=== PATIENT | male | born 1955 | race Two or more races ===

== ENCOUNTER → 2024-09-04 | Outpatient (CLI) | payer OTHER ==
[2024-09-04 07:58] LABS: Urine Bacteria None Seen /hpf (None Seen)
[2024-09-04 08:03] LABS: Basophils # (auto) 0.1 10 ^3/uL (0-0.2); Basophils % (auto) 1.5 % (0.0-2.0); Eosinophils # (auto) 0.3 10 ^3/uL (0-0.8); Eosinophils % (auto) 5.4 % (0.0-7.0); Hematocrit 31.9 % (41.0-53.0); Hemoglobin 9.7 g/dL (13.5-17.5); Lymphocytes # (auto) 1.2 10 ^3/uL (0.4-5.4); Lymphocytes % (auto) 23.1 % (10.0-50.0); Mean Corpuscular Hemoglobin 21.1 pg (28.0-32.0); Mean Corpuscular Hgb Conc. 30.5 g/dL (32.0-36.0); Mean Corpuscular Volume 69.3 fL (80.0-100.0); Monocytes # (auto) 0.4 10 ^3/uL (0-1.3); Monocytes % (auto) 8.6 % (0.0-12.0); Neutrophils # (auto) 3.2 10 ^3/uL (1.6-8.6); Neutrophils % (auto) 61.4 % (37.0-80.0); Platelet Count (auto) 311 10^3/uL (140-450); Red Blood Cells 4.61 10^6/uL (4.5-5.90); Red Cell Distribution Width 16.8 % (11.8-14.3); White Blood Cell 5.2 10^3/uL (4.4-10.8)
[2024-09-04 08:11] LABS: Urine Blood Negative /uL (Negative); Urine Clarity Clear (Clear); Urine Color Light-Yellow (Yellow); Urine Protein, UAD Negative (Negative); Urine Specific Gravity 1.011 (1.001-1.035); Urine Squamous Epithelial Cell None Seen /hpf (<5); Urine Urobilinogen Normal (Negative); Urine WBC < 1 /HPF (0-3); Urine pH 6.5 (5.0-9.0)
[2024-09-04 08:38] LABS: Alanine Aminotransferase 17 U/L (7-40); Anion Gap 8 (5-15); BUN/Creatinine Ratio 11.5 (10.0-20.0); Blood Urea Nitrogen 10 mg/dL (9-23); Carbon Dioxide 29 mmol/L (20-31); Chloride 105 mmol/L (98-107); Cholesterol 113 mg/dL (< 200); LDL Cholesterol 56 mg/dL (< 100); Potassium 4.4 mmol/L (3.5-5.1); Sodium 142 mmol/L (136-145); Total Protein 7.3 g/dL (5.7-8.2); Triglycerides 142 mg/dL (< 150)
[2024-09-04 08:39] LABS: Bilirubin, Total 1.1 mg/dL (0.2-1.0)
[2024-09-04 08:42] LABS: Albumin 4.9 g/dL (3.2-4.8); Alkaline Phosphatase 41 U/L (46-116); Aspartate Aminotransferase 10 U/L (13-40); Glucose 118 mg/dL (74-106); HDL Cholesterol 40 mg/dL (40-59)
[2024-09-04 11:12] LABS: Folate (Folic Acid) 31.91 ng/mL (>5.38)
== END | disposition home or self-care (01) ==
LOC: LAB 07:42
PROVIDERS: ATTEND Internal Medicine
DX: N40.0 Benign prostatic hyperplasia without lower urinary tract symptoms (principal); E61.2 Magnesium deficiency; E55.9 Vitamin D deficiency, unspecified; D51.9 Vitamin B12 deficiency anemia, unspecified; E78.49 Other hyperlipidemia; E79.0 Hyperuricemia without signs of inflammatory arthritis and tophaceous disease; R94.6 Abnormal results of thyroid function studies; R82.79 Other abnormal findings on microbiological examination of urine; R82.998 Other abnormal findings in urine; R73.09 Other abnormal glucose; R68.89 Other general symptoms and signs; R82.90 Unspecified abnormal findings in urine
CPT/HCPCS: 36415; 80053; 80061; 81001; 82306; 82607; 82746; 83036; 84153; 84443; 84550; 85025; 87086

== ENCOUNTER 2024-10-01 10:30 | Outpatient (CLI) | payer OTHER ==
[2024-10-01 11:15] LABS: Chloride 105 mmol/L (98-107); Potassium 4.3 mmol/L (3.5-5.1); Sodium 138 mmol/L (136-145)
[2024-10-01 11:16] LABS: Anion Gap 8 (5-15); Carbon Dioxide 25 mmol/L (20-31)
[2024-10-01 11:17] LABS: Calcium 9.8 mg/dL (8.7-10.4)
[2024-10-01 11:18] LABS: Creatinine, Urine 17.91 mg/dL (30.0-125.0)
[2024-10-01 11:21] LABS: BUN/Creatinine Ratio 11.1 (10.0-20.0); Blood Urea Nitrogen 10 mg/dL (9-23)
[2024-10-01 11:31] LABS: Glucose 265 mg/dL (74-106); Micro Albumin < 3.0 mg/L (<30.0); Microalb/Creat Ratio, Urine < 16.00
== END 2024-10-01 17:00 | disposition home or self-care (01) ==
LOC: LAB 10:30
PROVIDERS: ATTEND Internal Medicine
DX: E11.9 Type 2 diabetes mellitus without complications (principal)
CPT/HCPCS: 36415; 80048; 82043; 82570; 83036

== ENCOUNTER 2024-10-26 07:05 | Outpatient (CLI) | payer OTHER ==
[2024-10-26 07:36] LABS: Basophils # (auto) 0.1 10 ^3/uL (0-0.2); Eosinophils # (auto) 0.3 10 ^3/uL (0-0.8); Hemoglobin 12.2 g/dL (13.5-17.5); Lymphocytes # (auto) 1.3 10 ^3/uL (0.4-5.4); Mean Corpuscular Hemoglobin 24.8 pg (28.0-32.0); Monocytes # (auto) 0.5 10 ^3/uL (0-1.3); Red Blood Cells 4.92 10^6/uL (4.5-5.90)
[2024-10-26 07:38] LABS: Eosinophils % (auto) 5.9 % (0.0-7.0); Hematocrit 38.6 % (41.0-53.0); Lymphocytes % (auto) 22.2 % (10.0-50.0); Mean Corpuscular Hgb Conc. 31.6 g/dL (32.0-36.0); Mean Corpuscular Volume 78.3 fL (80.0-100.0); Monocytes % (auto) 8.8 % (0.0-12.0); Neutrophils # (auto) 3.6 10 ^3/uL (1.6-8.6); Neutrophils % (auto) 62.1 % (37.0-80.0); Platelet Count (auto) 258 10^3/uL (140-450); White Blood Cell 5.8 10^3/uL (4.4-10.8)
[2024-10-26 07:40] LABS: Red Cell Distribution Width 27.5 % (11.8-14.3)
[2024-10-26 08:08] LABS: Anisocytosis Slight
[2024-10-26 08:09] LABS: Hypochromia Slight; Ovalocytes FEW; Platelet Estimate Adequate
[2024-10-26 08:15] LABS: Alanine Aminotransferase 14 U/L (7-40); Albumin 4.9 g/dL (3.2-4.8); Alkaline Phosphatase 43 U/L (46-116); Anion Gap 10 (5-15); Aspartate Aminotransferase 21 U/L (<34); BUN/Creatinine Ratio 16.1 (10.0-20.0); Bilirubin, Direct 0.4 mg/dL (<0.3); Blood Urea Nitrogen 14 mg/dL (9-23); Calcium 10.2 mg/dL (8.7-10.4); Carbon Dioxide 25 mmol/L (20-31); Chloride 107 mmol/L (98-107); Glucose 108 mg/dL (74-106); HDL Cholesterol 34 mg/dL (40-59); LDL Cholesterol 47 mg/dL (< 100); Potassium 4.4 mmol/L (3.5-5.1); Sodium 142 mmol/L (136-145); Total Protein 7.3 g/dL (5.7-8.2); Triglycerides 163 mg/dL (< 150)
[2024-10-26 09:15] LABS: Cholesterol 99 mg/dL (< 200)
[2024-10-26 10:14] LABS: % Iron Saturation 14.5 % (20-55)
== END 2024-10-26 17:00 | disposition home or self-care (01) ==
LOC: LAB 07:05
PROVIDERS: ATTEND Specialist
DX: I10 Essential (primary) hypertension (principal); E61.1 Iron deficiency; E11.9 Type 2 diabetes mellitus without complications; E78.5 Hyperlipidemia, unspecified; D64.9 Anemia, unspecified; E03.9 Hypothyroidism, unspecified; R68.89 Other general symptoms and signs
CPT/HCPCS: 36415; 80053; 80061; 82248; 82728; 83036; 83540; 83550; 84443; 85025

== ENCOUNTER → 2024-11-28 | Day surgery (SDC) | payer OTHER, MEDICAID ==
[2024-11-24 07:59] LABS: INR 1.0 (0.9-1.15); Partial Thromboplastin Time 29.1 SEC (24.5-34.5); Prothrombin Time 10.6 sec (9.3-11.8)
[2024-11-24 08:00] LABS: Hematocrit 45.1 % (41.0-53.0); Hemoglobin 15.3 g/dL (13.5-17.5); Mean Corpuscular Hemoglobin 28.7 pg (28.0-32.0); Mean Corpuscular Volume 84.8 fL (80.0-100.0); Nucleated Red Blood Cells % 0.1 %
[2024-11-24 09:16] LABS: Alanine Aminotransferase 20 U/L (7-40); Anion Gap 9 (5-15); BUN/Creatinine Ratio 20.2 (10.0-20.0); Blood Urea Nitrogen 18 mg/dL (9-23); Carbon Dioxide 30 mmol/L (20-31); Chloride 102 mmol/L (98-107); Potassium 4.7 mmol/L (3.5-5.1); Sodium 141 mmol/L (136-145); Total Protein 7.7 g/dL (5.7-8.2)
[2024-11-24 09:17] LABS: Bilirubin, Total 1.1 mg/dL (0.2-1.0)
[2024-11-24 09:22] LABS: Albumin 5.3 g/dL (3.2-4.8); Alkaline Phosphatase 43 U/L (46-116); Calcium 10.6 mg/dL (8.7-10.4); Glucose 137 mg/dL (74-106)
[~2024-11-28] VITALS: Ht 180.3 cm; Wt 83.0 kg
[~2024-11-28] MED LIST: APPL300T4 PO; ASPI81CH59 PO; B-COCAP34 OR; CARV6.2551 PO; CHOL25CH3 PO; DIGO0.12 PO; DOCU1CAP46 PO; FERR1TAB31 PO; FLUT250M2 INH; FURO40TA4 PO; HYDR-4798 PO; IPRAAER6 IN; LACT10SO3 PO; LACTCAP3 OR; LIDO5DIS21 TOP; LOSA-534 PO; METF-370 PO; METH-1181 PO; MORP-109 PO; MULTCHW OR; POTA-36 PO; ROSU20TA14 PO; TURM500C3 OR; ZINC100T5 PO; [UNRECOGNIZED DRUG - CODE] PO
[2024-11-28] MEDS: fentaNYL CITRATE 100 MCG/2 ML VL ONE (08:33)
[2024-11-28] MEDS: MIDAZOLAM HCL 2MG/2ML 2ml VIAL (1mg/ml) ONE (08:33)
[2024-11-28 08:57] VITALS: PULSE 71; RESP 18; TEMP 97.5; O2SAT 95
--- NOTE | 2024-11-28 08:58 | DVHNC2 ---
Procedure - PROCEDURE DATE: NOVEMBER 28, 2024 PERFORMED BY: DR. CHRISTIAN REFERRING PROVIDER:DR HUBER PROCEDURE PERFORMED: 1. COLONOSCOPY WITH MODERATE SEDATION 2.COLONOSCOPY WITH COLD BIOPSY POLYPECTOMY PREPROCEDURE DIAGNOSIS: 1. ANEMIA 2.HX OF COLON POLYPS POSTPROCEDURE DIAGNOSIS: 1. INTERNAL/EXTERNAL HEMORRHOIDS 2. MODERATE DIVERTICULOSIS 3.4 SMALL POLYPS MEDICATIONS USED: 4MG OF VERSED AND 50 MCG OF FENTANYL IV INDICATIONS FOR PROCEDURE: THE PATIENT IS A 69-YEAR-OLD MALE PRESENTS FOR OUTPATIENT COLONOSCOPY FOR ANEMIA. HE HAS A HX OF COLON POLYPS DETAILS OF THE PROCEDURE: INFORMED CONSENT WAS OBTAINED AFTER RISKS BENEFITS AND ALTERNATIVES WERE DISCUSSED AT LENGTH WITH THE PATIENT. THE PATIENT GAVE CONSENT TO THE PROCEDURES WELL A MEDICATION USED FOR SEDATION. THE PATIENT WAS PLACED IN THE LEFT LATERAL DECUBITUS POSITION. DIGITAL RECTAL EXAMINATION SHOWED SMALL EXTERNAL HEMORRHOIDS. AN OLYMPUS VARIABLE TORSION ADULT COLONOSCOPE WAS INSERTED INTO THE RECTUM ADVANCE THE CECUM. THE SCOPE WAS THEN WITHDRAWN. THE PREP WAS FAIR WITH MODERATE AMOUNTS OF STOOL. THERE WERE NO LARGE POLYPS, MASSES, STRICTURES, OR ARTERIOVENOUS MALFORMATION SEEN. THE PATIENT HAD MODERATE MODERATE LEFT SIDED DIVERTICULOSIS. THERE WERE 4 POLYPS 3- 4 MM IN SIZE COMPLETELY REMOVED WITH COLD BIOPSY FORCEPS. ONE IN THE CECUM, 2 IN THE DESCENDING COLON AND ONE IN THE RECTUM. RETROFLEXION SHOWED INTERNAL HEMORRHOIDS. PATIENT TOLERATED THE PROCEDURE WELL. COLONOSCOPY START TIME: 837 COLONOSCOPY CECUM TIME: 841 COLONOSCOPY END TIME: 853 PREP SCORE: 5 IMPRESSION: 1. INTERNAL AND EXTERNAL HEMORRHOIDS 2. MODERATE DIVERTICULOSIS 3.4 SMALL POLYPS REMOVED RECOMMENDATIONS: 1. FOLLOW UP WITH PRIMARY CARE PHYSICIAN/GI CLINIC 2. HIGH-FIBER DIET 3. REPEAT COLONOSCOPY WITHIN ONE YEAR WITH 2 DAY PREP 4.CAUTION WITH ASA AND NSAIDS 5.WILL NEED EGD 6.CONSIDER NON GI SOURCE OF ANEMIA I WOULD LIKE TO THANK DR. HUBER FOR THE REFERRAL ELADIO CHRISTIAN MD Nov 28, 2024 08:58
[2024-11-28 09:20] VITALS: BP 110/72; PULSE 65; RESP 16; O2SAT 96
== END | disposition home or self-care (01) ==
LOC: GI 07:58
PROVIDERS: ATTEND Specialist
DX: D64.9 Anemia, unspecified (principal); D12.0 Benign neoplasm of cecum; D12.4 Benign neoplasm of descending colon; K57.30 Diverticulosis of large intestine without perforation or abscess without bleeding; K62.1 Rectal polyp; K64.4 Residual hemorrhoidal skin tags; K64.8 Other hemorrhoids; E11.9 Type 2 diabetes mellitus without complications; M19.90 Unspecified osteoarthritis, unspecified site; I10 Essential (primary) hypertension; J44.9 Chronic obstructive pulmonary disease, unspecified; E78.00 Pure hypercholesterolemia, unspecified; Z98.41 Cataract extraction status, right eye; Z98.42 Cataract extraction status, left eye; Z90.49 Acquired absence of other specified parts of digestive tract; Z95.1 Presence of aortocoronary bypass graft; Z79.899 Other long term (current) drug therapy; Z87.891 Personal history of nicotine dependence; Z88.0 Allergy status to penicillin; Z88.8 Allergy status to other drugs, medicaments and biological substances; Z79.84 Long term (current) use of oral hypoglycemic drugs; Z98.890 Other specified postprocedural states; Z79.01 Long term (current) use of anticoagulants; Z79.82 Long term (current) use of aspirin
CPT/HCPCS: 36415; 45380; 80053; 82962; 85025; 85610; 85730; 88305; J2250; J3010; 99152

== ENCOUNTER 2024-12-21 07:39 | Outpatient (CLI) | payer OTHER, MEDICAID ==
[2024-12-21 08:01] LABS: Hematocrit 43.6 % (41.0-53.0); Hemoglobin 15.3 g/dL (13.5-17.5); Mean Corpuscular Hemoglobin 30.6 pg (28.0-32.0); Mean Corpuscular Volume 87.2 fL (80.0-100.0); Nucleated Red Blood Cells % 0.2 %
[2024-12-21 08:10] LABS: Urine Protein, UAD Negative (Negative)
[2024-12-21 08:22] LABS: Alanine Aminotransferase 21 U/L (7-40); Anion Gap 10 (5-15); BUN/Creatinine Ratio 12.6 (10.0-20.0); Blood Urea Nitrogen 11 mg/dL (9-23); Calcium 9.4 mg/dL (8.7-10.4); Carbon Dioxide 26 mmol/L (20-31); Chloride 104 mmol/L (98-107); Cholesterol 103 mg/dL (< 200); Magnesium 2.0 mg/dL (1.6-2.6); Potassium 4.4 mmol/L (3.5-5.1); Sodium 140 mmol/L (136-145); Total Protein 7.0 g/dL (5.7-8.2)
[2024-12-21 08:25] LABS: Albumin 4.9 g/dL (3.2-4.8); Alkaline Phosphatase 42 U/L (46-116); Bilirubin, Total 1.3 mg/dL (0.2-1.0); Glucose 125 mg/dL (74-106); HDL Cholesterol 34 mg/dL (40-59); Triglycerides 180 mg/dL (< 150)
[2024-12-21 08:38] LABS: Uric Acid 8.8 mg/dL (3.7-9.2)
== END 2024-12-21 17:00 | disposition home or self-care (01) ==
LOC: LAB 07:39
PROVIDERS: ATTEND Internal Medicine
DX: I11.0 Hypertensive heart disease with heart failure (principal); I25.10 Atherosclerotic heart disease of native coronary artery without angina pectoris; E11.69 Type 2 diabetes mellitus with other specified complication; E78.00 Pure hypercholesterolemia, unspecified; I50.9 Heart failure, unspecified
CPT/HCPCS: 36415; 80053; 80061; 81003; 82306; 82607; 83036; 83735; 84443; 84550; 85025; 87086

== ENCOUNTER 2025-01-14 07:47 | Outpatient (CLI) | payer OTHER, MEDICAID ==
[2025-01-14 08:17] LABS: Hematocrit 46.5 % (41.0-53.0); Hemoglobin 16.3 g/dL (13.5-17.5); Mean Corpuscular Hemoglobin 31.3 pg (28.0-32.0); Mean Corpuscular Volume 89.5 fL (80.0-100.0); Nucleated Red Blood Cells % 0.0 %
[2025-01-14 08:49] LABS: Alanine Aminotransferase 26 U/L (7-40); Alkaline Phosphatase 49 U/L (46-116); Anion Gap 9 (5-15); BUN/Creatinine Ratio 10.8 (10.0-20.0); Blood Urea Nitrogen 10 mg/dL (9-23); Calcium 10.1 mg/dL (8.7-10.4); Carbon Dioxide 29 mmol/L (20-31); Chloride 103 mmol/L (98-107); Cholesterol 108 mg/dL (< 200); Potassium 4.7 mmol/L (3.5-5.1); Sodium 141 mmol/L (136-145); Total Protein 7.9 g/dL (5.7-8.2)
[2025-01-14 08:55] LABS: Albumin 5.1 g/dL (3.2-4.8); Bilirubin, Direct 0.5 mg/dL (<0.3); Bilirubin, Total 1.8 mg/dL (0.2-1.0); Glucose 106 mg/dL (74-106)
== END 2025-01-14 17:00 | disposition home or self-care (01) ==
LOC: LAB 07:47
PROVIDERS: ATTEND Specialist
DX: I11.0 Hypertensive heart disease with heart failure (principal); I50.9 Heart failure, unspecified; E11.9 Type 2 diabetes mellitus without complications; E03.9 Hypothyroidism, unspecified; E78.5 Hyperlipidemia, unspecified; D64.9 Anemia, unspecified; R68.89 Other general symptoms and signs; R77.8 Other specified abnormalities of plasma proteins
CPT/HCPCS: 36415; 80048; 80076; 82465; 82728; 83036; 84443; 85025

== ENCOUNTER → 2025-02-24 | Outpatient (CLI) | payer OTHER, MEDICAID ==
[~2025-02-24] MED LIST changes: +SITA50TA PO
[2025-02-24 11:31] LABS: Hematocrit 47.1 % (41.0-53.0); Hemoglobin 15.8 g/dL (13.5-17.5); Mean Corpuscular Hemoglobin 31.5 pg (28.0-32.0); Mean Corpuscular Volume 93.7 fL (80.0-100.0); Nucleated Red Blood Cells % 0.2 %
[2025-02-24 11:52] LABS: Urine Protein, UAD Negative (Negative)
[2025-02-24 11:53] LABS: Alanine Aminotransferase 22 U/L (7-40); Anion Gap 7 (5-15); BUN/Creatinine Ratio 10.6 (10.0-20.0); Calcium 10.0 mg/dL (8.7-10.4); Carbon Dioxide 31 mmol/L (20-31); Chloride 102 mmol/L (98-107); Magnesium 2.3 mg/dL (1.6-2.6); Potassium 4.6 mmol/L (3.5-5.1); Sodium 140 mmol/L (136-145); Total Protein 7.8 g/dL (5.7-8.2); Uric Acid 7.3 mg/dL (3.7-9.2)
[2025-02-24 11:57] LABS: Albumin 5.0 g/dL (3.2-4.8); Alkaline Phosphatase 43 U/L (46-116); Bilirubin, Total 1.8 mg/dL (0.2-1.0); Blood Urea Nitrogen 9 mg/dL (9-23); Glucose 109 mg/dL (74-106)
[2025-02-24 12:28] LABS: Prostate Specific Antigen 0.25 ng/mL (0.0-4.0)
[2025-02-24 15:11] LABS: Triglycerides 88 mg/dL (< 150)
[2025-02-24 15:13] LABS: Cholesterol 101 mg/dL (< 200); HDL Cholesterol 42 mg/dL (40-59)
== END | disposition home or self-care (01) ==
LOC: LAB 10:19
PROVIDERS: ATTEND Internal Medicine
DX: E11.69 Type 2 diabetes mellitus with other specified complication (principal); E78.019 Familial hypercholesterolemia, unspecified; D64.9 Anemia, unspecified; I77.810 Thoracic aortic ectasia; Z79.899 Other long term (current) drug therapy
CPT/HCPCS: 36415; 80053; 80061; 81003; 82306; 82607; 83036; 83735; 84153; 84443; 84550; 85025; 87086

== ENCOUNTER 2025-02-27 08:15 | Day surgery (SDC) | payer OTHER, MEDICAID ==
[2025-02-24 11:29] LABS: Hematocrit 45.5 % (41.0-53.0); Hemoglobin 15.7 g/dL (13.5-17.5); Mean Corpuscular Hemoglobin 32.2 pg (28.0-32.0); Mean Corpuscular Volume 93.3 fL (80.0-100.0); Nucleated Red Blood Cells % 0.1 %
[2025-02-24 11:44] LABS: INR 1.04 (0.9-1.15); Partial Thromboplastin Time 30.0 SEC (24.5-34.5); Prothrombin Time 11.0 sec (9.3-11.8)
[2025-02-24 11:52] LABS: Alanine Aminotransferase 20 U/L (7-40); Anion Gap 6 (5-15); BUN/Creatinine Ratio 9.4 (10.0-20.0); Calcium 10.1 mg/dL (8.7-10.4); Chloride 102 mmol/L (98-107); Potassium 4.5 mmol/L (3.5-5.1); Sodium 140 mmol/L (136-145); Total Protein 7.9 g/dL (5.7-8.2)
[2025-02-24 11:56] LABS: Albumin 5.1 g/dL (3.2-4.8); Alkaline Phosphatase 44 U/L (46-116); Bilirubin, Total 1.8 mg/dL (0.2-1.0); Blood Urea Nitrogen 8 mg/dL (9-23); Carbon Dioxide 32 mmol/L (20-31); Glucose 109 mg/dL (74-106)
[~2025-02-27] VITALS: Ht 180.3 cm; Wt 81.2 kg
[2025-02-27] MEDS: MIDAZOLAM HCL 2MG/2ML 2ml VIAL (1mg/ml) ONE (09:52)
[2025-02-27] MEDS: fentaNYL CITRATE 100 MCG/2 ML VL ONE (09:52)
--- NOTE | 2025-02-27 10:05 | DVHNC2 ---
Procedure - PROCEDURE DATE: 02/27/2025 PROCEDURE PERFORMED BY: Eladio Christian MD REFERRING PROVIDER: Prasanth More MD PROCEDURE PERFORMED: 1. ESOPHAGOGASTRODUODENOSCOPY WITH MODERATE SEDATION 2. ESOPHAGOGASTRODUODENOSCOPY WITH BIOPSY PRE-PROCEDURE DIAGNOSIS: 1. Anemia POSTPROCEDURE DIAGNOSIS: 1. Mild erosive esophagitis 2. Mild erosive gastritis INDICATIONS FOR PROCEDURE: Patient is a 69 year-old male who presents for outpatient endoscopy for anemia MEDICATIONS USED: 4 mg of Versed IV and 50 mcg of fentanyl IV DETAILS OF THE PROCEDURE: Informed consent was obtained after risks benefits and alternatives were discussed at length with the patient. The patient gave co nsent to the procedure as well as the medication used for sedation. The patient was placed in left lateral decubitus position. An Olympus endoscope was inserted into the oropharynx advanced into the esophagus then into the stomach then into the duodenal bulb and duodenum. The duodenal bulb and duodenum were normal. Biopsies were taken given the patient's anemia. The scope was then withdrawn. The patient had mild gastritis. Retained secretions were washed off or suctioned. Retroflexion showed no abnormalities. The scope was then withdrawn. The Z-line was at 37 cm. Patient had mild erosive esophagitis. scope was then withdrawn and the procedure completed. The patient tolerated the procedure well. IMPRESSION: 1. Mild erosive esophagitis, LA Grade A 2. Mild erosive gastritis RECOMMENDATIONS: 1. Follow up in GI clinic for procedure and pathology results 2. Anti-reflux precautions 3. Proton pump inhibitor daily 4. Consider further workup for anemia with small bowel workup if the patient is having a GI bleed versus non GI sources of anemia I WOULD LIKE TO THANK DR. PRASANTH MORE FOR THIS REFERRA ELADIO CHRISTIAN MD Feb 27, 2025 10:05
[2025-02-27 10:06] VITALS: PULSE 64; RESP 12; TEMP 97.8; O2SAT 94
[2025-02-27 10:30] VITALS: BP 113/57; PULSE 62; RESP 17; O2SAT 94
== END 2025-02-27 10:45 | disposition home or self-care (01) ==
LOC: GI 08:15
PROVIDERS: ATTEND Specialist
DX: D64.9 Anemia, unspecified (principal); K29.50 Unspecified chronic gastritis without bleeding; K21.00 Gastro-esophageal reflux disease with esophagitis, without bleeding; J44.9 Chronic obstructive pulmonary disease, unspecified; I50.9 Heart failure, unspecified; Z98.890 Other specified postprocedural states; Z79.899 Other long term (current) drug therapy
CPT/HCPCS: 36415; 43239; 80053; 82962; 85025; 85610; 85730; 88305; 88313; 88342; J2250; J3010